=== PATIENT | female | born 1995 | race Two or more races ===

== ENCOUNTER 2017-03-13 23:38 | Emergency (ER) | payer OTHER ==
[~2017-03-13] VITALS: Ht 170.2 cm; Wt 63.5 kg
[~2017-03-13 23:38] MED LIST: AMOX1TAB12 PO; BACTROBAN OINT22 GM TP; KEPPRA500 MG; KETO10TA2 PO; QVAR8.7 G1 IH; SINGULAIR 10MG10 MG PO; ZYNCOF 20-400120 ML PO
[2017-03-14] MEDS ORDERED: KETO10TA2 PO (07:03)
[2017-03-14] MEDS ORDERED: BACTRIM DS TAB1 EACH PO (07:03)
== END 2017-03-14 07:21 | disposition home or self-care (01) ==
LOC: ER 23:38
DX: N39.0 Urinary tract infection, site not specified (principal); R10.2 Pelvic and perineal pain; N83.201 Unspecified ovarian cyst, right side

== ENCOUNTER → 2017-03-23 | Emergency (ER) | payer OTHER ==
[~2017-03-23] VITALS: Ht 170.2 cm; Wt 65.8 kg
[~2017-03-23] MED LIST changes: +BACTRIM DS TAB1 EACH PO
== END | disposition home or self-care (01) ==
LOC: ER 13:47
DX: B34.9 Viral infection, unspecified (principal)

== ENCOUNTER 2017-05-11 23:52 | Emergency (ER) | payer OTHER ==
[~2017-05-11] VITALS: Ht 170.2 cm; Wt 65.8 kg
[2017-05-12] MEDS ORDERED: ZITHROMAX500 MG PO (04:16)
[2017-05-12] MEDS ORDERED: ALBUTEROL2.5 MG/3 M IH (04:16)
[2017-05-12] MEDS ORDERED: PHENAGIL CH TA1 EACH PO (04:16)
== END 2017-05-12 | disposition home or self-care (01) ==
LOC: ER 23:52
DX: J06.9 Acute upper respiratory infection, unspecified (principal)

== ENCOUNTER 2017-05-16 13:07 | Emergency (ER) | payer OTHER ==
[~2017-05-16] VITALS: Ht 170.2 cm; Wt 65.3 kg
[~2017-05-16 13:07] MED LIST changes: +ALBUTEROL2.5 MG/3 M IH; +PHENAGIL CH TA1 EACH PO; +ZITHROMAX500 MG PO
== END 2017-05-16 16:33 | disposition home or self-care (01) ==
LOC: ER 13:07
DX: K52.89 Other specified noninfective gastroenteritis and colitis (principal)

== ENCOUNTER → 2017-06-15 | Emergency (ER) | payer OTHER ==
[~2017-06-15] VITALS: Ht 170.2 cm; Wt 63.5 kg
[~2017-06-15] MED LIST changes: +CEFUROXIME500 MG PO; +MUPIROCIN22 GM TOP
== END | disposition home or self-care (01) ==
LOC: ER 22:34
DX: H66.91 Otitis media, unspecified, right ear (principal)

== ENCOUNTER 2017-07-29 17:32 | Emergency (ER) | payer OTHER ==
[~2017-07-29] VITALS: Ht 170.2 cm; Wt 64.9 kg
== END 2017-07-29 21:49 | disposition home or self-care (01) ==
LOC: ER 17:32
DX: J32.8 Other chronic sinusitis (principal); R10.2 Pelvic and perineal pain

== ENCOUNTER → 2017-09-19 | Emergency (ER) | payer OTHER ==
[~2017-09-19] VITALS: Ht 170.2 cm; Wt 63.5 kg
== END | disposition left against medical advice (07) ==
LOC: ER 00:30
DX: R10.31 Right lower quadrant pain (principal)

== ENCOUNTER 2017-09-20 15:11 | Emergency (ER) | payer OTHER ==
[~2017-09-20] VITALS: Ht 165.1 cm; Wt 56.7 kg
== END 2017-09-20 21:40 | disposition home or self-care (01) ==
LOC: ER 15:11
DX: N94.6 Dysmenorrhea, unspecified (principal)

== ENCOUNTER 2017-10-01 00:13 | Emergency (ER) | payer OTHER ==
[~2017-10-01] VITALS: Ht 170.2 cm; Wt 67.1 kg
[2017-10-01] MEDS ORDERED: KEPPRA500 MG (00:32)
== END 2017-10-01 10:57 | disposition home or self-care (01) ==
LOC: ER 00:13
DX: R10.2 Pelvic and perineal pain (principal)

== ENCOUNTER 2017-10-25 19:45 | Emergency (ER) | payer OTHER ==
[~2017-10-25] VITALS: Ht 170.2 cm; Wt 67.6 kg
[2017-10-25] MEDS ORDERED: IBUPROFEN800 MG PO (22:15)
[2017-10-25] MEDS ORDERED: CYCLOBENZAPRINE10 MG PO (22:15)
== END 2017-10-25 23:45 | disposition home or self-care (01) ==
LOC: ER 19:45
DX: M62.838 Other muscle spasm (principal); M54.89 Other dorsalgia

== ENCOUNTER 2017-11-30 20:43 | Emergency (ER) | payer OTHER ==
[~2017-11-30] VITALS: Ht 170.2 cm; Wt 67.6 kg
[~2017-11-30 20:43] MED LIST changes: +CYCLOBENZAPRINE10 MG PO; +IBUPROFEN800 MG PO
== END 2017-11-30 22:27 | disposition home or self-care (01) ==
LOC: ER 20:43
DX: S13.4XXA Sprain of ligaments of cervical spine, initial encounter (principal); M62.830 Muscle spasm of back; X50.3XXA Overexertion from repetitive movements, initial encounter; Y93.89 Activity, other specified; Y92.39 Other specified sports and athletic area as the place of occurrence of the external cause; Y99.8 Other external cause status

== ENCOUNTER 2017-12-21 21:17 | Emergency (ER) | payer OTHER ==
[~2017-12-21] VITALS: Ht 170.2 cm; Wt 68.5 kg
== END 2017-12-22 00:13 | disposition home or self-care (01) ==
LOC: ER 21:17
DX: K59.09 Other constipation (principal)

== ENCOUNTER 2017-12-26 10:18 | Emergency (ER) | payer OTHER ==
[~2017-12-26] VITALS: Ht 170.2 cm; Wt 68.0 kg
== END 2017-12-26 11:53 | disposition home or self-care (01) ==
LOC: ER 10:18
DX: K59.09 Other constipation (principal)

== ENCOUNTER 2017-12-29 20:00 | Emergency (ER) | payer OTHER ==
[~2017-12-29] VITALS: Ht 170.2 cm; Wt 68.9 kg
== END 2017-12-29 23:27 | disposition home or self-care (01) ==
LOC: ER 20:00
DX: K59.09 Other constipation (principal)

== ENCOUNTER 2018-03-15 21:07 | Emergency (ER) | payer OTHER ==
[~2018-03-15] VITALS: Ht 170.2 cm; Wt 67.6 kg
== END 2018-03-15 22:27 | disposition home or self-care (01) ==
LOC: ER 21:07
DX: M94.0 Chondrocostal junction syndrome [Tietze] (principal)

== ENCOUNTER 2018-05-17 12:53 | Emergency (ER) | payer OTHER ==
[~2018-05-17] VITALS: Ht 170.2 cm; Wt 68.5 kg
== END 2018-05-17 14:45 | disposition home or self-care (01) ==
LOC: ER 12:53
DX: G44.209 Tension-type headache, unspecified, not intractable (principal)

== ENCOUNTER 2018-07-29 21:11 | Emergency (ER) | payer OTHER ==
[~2018-07-29] VITALS: Ht 170.2 cm; Wt 67.6 kg
== END 2018-07-29 22:25 | disposition home or self-care (01) ==
LOC: ER 21:11
DX: R06.02 Shortness of breath (principal); F06.4 Anxiety disorder due to known physiological condition

== ENCOUNTER 2018-10-07 20:41 | Emergency (ER) | payer OTHER ==
[~2018-10-07] VITALS: Ht 170.2 cm; Wt 68.5 kg
== END 2018-10-07 23:13 | disposition home or self-care (01) ==
LOC: ER 20:41
DX: K59.09 Other constipation (principal); K62.5 Hemorrhage of anus and rectum

== ENCOUNTER 2020-07-29 16:44 | Emergency (ER) | payer OTHER ==
[~2020-07-29] VITALS: Ht 170.2 cm; Wt 68.0 kg
[2020-07-29] MEDS ORDERED: DICLOFENAC SODI75 MG PO (19:56)
[2020-07-29] MEDS ORDERED: NORFLEX100MG PO (19:56)
== END 2020-07-29 20:17 | disposition home or self-care (01) ==
LOC: ER 16:44
DX: M54.5 Low back pain (principal)

== ENCOUNTER → 2023-02-26 | Emergency (ER) | payer OTHER ==
[~2023-02-26] VITALS: Ht 170.2 cm; Wt 72.1 kg
[~2023-02-26] MED LIST changes: +DICLOFENAC SODI75 MG PO; +NORFLEX100MG PO
== END | disposition left against medical advice (07) ==
LOC: ER → EDBD 23:18 → ER 23:45
DX: Z53.21 Procedure and treatment not carried out due to patient leaving prior to being seen by health care provider (principal)